=== PATIENT | male | born 1995 | race Caucasian/White ===

== ENCOUNTER 2020-02-15 17:31 | Emergency (ER) | payer MEDICAID ==
--- NOTE | 2020-02-15 17:55 | EDM.PDOC ---
ED HPI GENERAL MEDICAL PROBLEM - General Chief Complaint: Laceration Stated Complaint: CUT LT FINGER WON'T STOP BLEEDING Time Seen by Provider: 02/15/20 17:50 Source of Information: Reports: Patient History Limitations: Reports: No Limitations - History of Present Illness INITIAL COMMENTS - FREE TEXT/NARRATIVE: History of present illness: [Patient is 24-year-old male who presents with a laceration to the dorsal aspect of his left pinky finger. States that he was cleaning/dressing a deer and the knife slipped and cut that part of his pinky. Does not recall when his last te tanus shot was. Says he had a hard time stopping the bleeding and decided to come in to get checked out. Denies any other injuries or complaints.] Review of systems: As per history of present illness and below otherwise all systems reviewed and negative. Past medical history: As per history of present illness and as reviewed below otherwise noncontributory. Surgical history: As per history of present illness and as reviewed below otherwise noncontributory. Social history: No reported history of drug or alcohol abuse. Family history: As per history of present illness and as reviewed below otherwise noncontributory. Physical exam: General: Awake, alert, no acute distress, A&O X3. HEENT: Atraumatic, normocephalic, negative for conjunctival pallor or scleral icterus, mucous membranes moist, trachea midline. Lungs: Clear to auscultation, breath sounds equal bilaterally, chest nontender. Heart: RRR, normal S1S2 Abdomen: Soft, nondistended, nontender. Pelvis: Stable Genitourinary: Deferred. Rectal: Deferred. Extremities: 1 cm skin lac to dorsal, proximal left pinky finger, appears to be more consistent with a sheared skin tear, not suturable Neuro: Motor and sensory grossly intact throughout. Exam nonfocal. Diagnostics: [] Therapeutics: [] Impression: [] Plan: [] Definitive disposition and diagnosis as appropriate pending reevaluation and review of above. - Related Data Allergies Allergy/AdvReac Type Severity Reaction Status Date / Time No Known Allergies Allergy Verified 02/15/20 17:50 Home Meds: Home Meds . [No Known Home Meds] 02/15/20 [History] ED ROS GENERAL - Review of Systems Review Of Systems: Comprehensive ROS is negative, except as noted in HPI. ED EXAM, SKIN/RASH Exam: See Below (see h and p) ED SKIN PROCEDURES - Laceration/Wound Repair Left Digit - 5th (Baby) Appearance: Superficial Distal NVT: Neuro & Vascular Intact Skin Prep: Saline Saline Irrigation (cc's): 50 Exploration/Debridement/Repair: Wound Explored, No Foreign Material Found Closed with: Dermabond Lac/Wound length In cm: 1 Tetanus Status Addressed: Yes Complications: No Course - Vital Signs Text/Narrative:: Bleeding controlled, Dermabond used to close/cover the sheared missing skin chunk. Tetanus updated. Patient tolerated this well. Return precautions provided. Gave him a finger splint to help keep the glue/laceration site intact and prevent rebleeding/rupture. Stable at discharge. Last Recorded V/S: Last Vital Signs Temp 37.1 C 02/15/20 17:42 Pulse 85 02/15/20 17:42 Resp 17 02/15/20 17:42 BP 135/89 02/15/20 17:42 Pulse Ox 96 02/15/20 17:42 - Orders/Labs/Meds Orders: Active Orders 24 hr Category Date Time Status Splinting [RC] ASDIRECTED Care 02/15/20 18:13 Active Vaccines to be Administered [RC] PER UNIT ROUTINE Care 02/15/20 18:10 Active Meds: Medications Discontinued Medications Generic Name Dose Route Start Last Admin Trade Name Kyra PRN Reason Stop Dose Admin Diphtheria/Tetanus/Acell Pertussis 0.5 ml 02/15/20 18:10 Adacel IM 02/15/20 18:11 .ONCE ONE Octyl Cyanoacrylate Confirm 02/15/20 18:06 Dermabond Advance Administered 02/15/20 18:07 Dose 1 applic .ROUTE .STK-MED ONE Octyl Cyanoacrylate 1 applic 02/15/20 18:13 Dermabond Advance TOP 02/15/20 18:14 ONETIME ONE Departure - Departure Time of Disposition: 18:20 Disposition: Home, Self-Care 01 Condition: Good Clinical Impression: Finger laceration - Discharge Information Instructions: Sutures, Sinai, or Adhesive Wound Closure Referrals: Seferino Rodriguez MD [Primary Care Provider] - Forms: ED Department Discharge Additional Instructions: Follow-up with primary care doctor. Return to the ER with any new or worsening symptoms. The following information is given to patients seen in the emergency department who are being discharged to home. This information is to outline your options for follow-up care. We provide all patients seen in our emergency department with a follow-up referral. The need for follow-up, as well as the timing and circumstances, are variable depending upon the specifics of your emergency department visit. If you don't have a primary care physician on staff, we will provide you with a referral. We always advise you to contact your personal physician following an emergency department visit to inform them of the circumstance of the visit and for follow-up with them and/or the need for any referrals to a consulting specialist. The emergency department will also refer you to a specialist when appropriate. This referral assures that you have the opportunity for follow-up care with a specialist. All of these measure are taken in an effort to provide you with optimal care, which includes your follow-up. Under all circumstances we always encourage you to contact your private physician who remains a resource for coordinating your care. When calling for follow-up care, please make the office aware that this follow-up is from your recent emergency room visit. If for any reason you are refused follow-up, please contact the [facility] Emergency Department at and asked to speak to the emergency department charge nurse. Sepsis Event Note (ED) - Evaluation Sepsis Screening Result: No Definite Risk - Focused Exam Vital Signs: Vital Signs Temp Pulse Resp BP Pulse Ox 02/15/20 17:42 37.1 C 85 17 135/89 96 - My Orders Last 24 Hours: My Active Orders 02/15/20 18:10 Vaccines to be Administered [RC] PER UNIT ROUTINE 02/15/20 18:13 Splinting [RC] ASDIRECTED - Assessment/Plan Last 24 Hours: My Active Orders 02/15/20 18:10 Vaccines to be Administered [RC] PER UNIT ROUTINE 02/15/20 18:13 Splinting [RC] ASDIRECTED
[2020-02-15] MEDS ORDERED: Octyl 2-Cyanoacrylate 1 Tube ONE (18:06)
[2020-02-15] MEDS ORDERED: Diphtheria,Pertussis(Acell),Tetanus Vaccine 0.5 ML Syringe IM ONE (18:10)
[2020-02-15] MEDS ORDERED: Octyl 2-Cyanoacrylate 1 Tube TOP ONE (18:13)
== END 2020-02-15 18:30 | disposition home or self-care (01) ==
LOC: MW.ED 17:31
DX: S61.217A Laceration without foreign body of left little finger without damage to nail, initial encounter (principal); Z23 Encounter for immunization; W26.0XXA Contact with knife, initial encounter
CPT/HCPCS: 12001; 90471; 90715; 99282; A9270